=== PATIENT | male | born 1970 | race African-American/Black ===

== ENCOUNTER 2017-10-27 20:27 | Emergency (ER) | payer SELFPAY ==
[~2017-10-27] VITALS: Ht 177.8 cm; Wt 117.9 kg
[2017-10-27 20:35] VITALS: BP 178/107
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
--- NOTE | 2017-10-27 22:21 | RAD ---
CT Head W/O Contrast: History: head injury, neck pain, no priors Comparison: none Axial images were obtained without contrast. The yip and white matter appears normal and symmetrical for the patients age. There is no mass effect, extraaxial fluid collections or hydrocephalus. There is no gross bleed. There is no focal loss of yip-white matter distinction to suggest acute ischemia, i.e. stroke. Impression: No acute findings. End impression CT C-Spine without contrast: Clinical History: head injury, neck pain, no priors Technique: Axial helical images of the cervical spine were obtained without contrast, axial coronal and sagittal reconstruction was performed. Findings: There is no loss of vertebral body stature. There is no prevertebral soft tissue swelling. The vertebral bodies are well aligned. There is straightening of the normal cervical lordosis which can be positional or could be chronic. The C1-C2 relationship is normal. The visualized osseous structures appear normal. Evaluation of the central canal is limited without contrast. There is multiple posterior disc bulges resulting in flattening of the thecal sac. There does not appear to be gross flattening of the cervical cord. There is moderate narrowing of multiple neuroforamen. Impression: No acute findings. Clinical correlation suggested. PQRS Compliance Statement: One or more of the following individualized dose reduction techniques were utilized for this examination: 1. Automated exposure control 2. Adjustment of the mA and/or kV according to patient size 3. Use of iterative reconstruction technique Electronically signed by: Hipolito Rodriguez III, MD (10/27/2017 10:18 PM) [facility]
[2017-10-27] MEDS ORDERED: CYCL10TA2 PO (22:30)
== END 2017-10-27 22:35 | disposition home or self-care (01) ==
LOC: ER 20:27
DX: S16.1XXA Strain of muscle, fascia and tendon at neck level, initial encounter (principal); H53.8 Other visual disturbances; V49.9XXA Car occupant (driver) (passenger) injured in unspecified traffic accident, initial encounter; Y93.89 Activity, other specified; Y92.410 Unspecified street and highway as the place of occurrence of the external cause; Y99.8 Other external cause status
CPT/HCPCS: 70450; 72125; 99284

== ENCOUNTER 2017-12-09 05:28 | Emergency (ER) | payer SELFPAY ==
[~2017-12-09] VITALS: Ht 177.8 cm; Wt 117.9 kg
[~2017-12-09 05:28] MED LIST: CYCL10TA2 PO
--- NOTE | 2017-12-09 06:07 | PHYS DOC ---
Past Medical History Past Medical History: No Pertinent History Past Surgical History: Other Additional Past Surgical Histo: PENIAL-REMOVED SKIN 27YRS AGO Alcohol Use: None Drug Use: None Adult General Chief Complaint Chief Complaint: BACK PAIN OR INJURY HPI HPI Patient is a 47 her old male who presents with complaint of continued neck pain after an injury on the first october. Patient states that he had injured himself at work and had come to the emergency room at that time during which they had done a CT imaging. Patient states that he continues to have neck pain and this morning he states his legs gave out and he fell. He states that his pain is now worse. He rates pain at an 8 out of 10. He states that he has been taking [id number] ibuprofen without any relief. He denies any loss of bowel or bladder control. Patient states that pain is worsened with movement of his neck. He does describe the pain in his neck is cramps. He denies any muscle cramps in any other areas of his body. Review of Systems Review of Systems Constitutional: Denies fever or chills [] Respiratory: Denies cough or shortness of breath [] Cardiovascular: Denies chest pain[] GI: Denies abdominal pain, nausea, vomiting or diarrhea [] Musculoskeletal: Complains of neck pain[] Integument: Denies rash or skin lesions [] Neurologic: Denies headache, focal weakness or sensory changes [] All other systems were reviewed and found to be within normal limits, except as documented in this note. Current Medications Current Medications Current Medications Medications (Trade) Dose Ordered Sig/Zonia Start Time Stop Time Status Last Admin Dose Admin Dexamethasone Sodium Phosphate (Decadron) 10 mg 1X ONCE 12/09/17 07:00 12/09/17 07:01 DC 12/09/17 06:54 10 MG Orphenadrine Citrate (Norflex) 60 mg 1X ONCE 12/09/17 07:00 12/09/17 07:01 DC 12/09/17 06:55 60 MG Allergies Allergies Allergies Coded Allergies Type Severity Reaction Last Updated Verified No Known Drug Allergies 10/27/17 No Physical Exam Physical Exam Constitutional: Well developed, well nourished, no acute distress, non-toxic appearance. [] HENT: Normocephalic, atraumatic. [] Eyes: PERRLA, EOMI, conjunctiva normal, no discharge. [] Neck: Normal range of motion, supple, no stridor. Patient does report tenderness to palpation in the bilateral suboccipital musculature. [] Cardiovascular:Heart rate regular rhythm [] Lungs & Thorax: Bilateral breath sounds clear to auscultation [] Skin: Warm, dry, no erythema, no rash. [] Extremities: No tenderness, no cyanosis, no clubbing, ROM intact, no edema. [] Neurologic: Alert and oriented X 3, normal motor function, normal sensory function, no focal deficits noted. [] Current Patient Data Vital Signs Vital Signs Date Time Temp Pulse Resp B/P (MAP) Pulse Ox O2 Delivery O2 Flow Rate FiO2 12/09/17 07:00 82 18 192/104 (133) 99 12/09/17 05:52 98.6 Room Air 98.6 Lab Values Laboratory Tests Test 12/09/17 06:07 White Blood Count 7.5 x10^3/uL (4.0-11.0) Red Blood Count 5.05 x10^6/uL (4.30-5.70) Hemoglobin 13.6 g/dL (13.0-17.5) Hematocrit 41.0 % (39.0-53.0) Mean Corpuscular Volume 81 fL (79-100) Mean Corpuscular Hemoglobin 27 pg (25-35) Mean Corpuscular Hemoglobin Concent 33 g/dL (31-37) Red Cell Distribution Width 15.0 % (11.5-14.5) H Platelet Count 301 x10^3/uL (140-400) Neutrophils (%) (Auto) 66 % (31-73) Lymphocytes (%) (Auto) 23 % (24-48) L Monocytes (%) (Auto) 8 % (0-9) Eosinophils (%) (Auto) 2 % (0-3) Basophils (%) (Auto) 1 % (0-3) Neutrophils # (Auto) 4.9 x10^3uL (1.8-7.7) Lymphocytes # (Auto) 1.8 x10^3/uL (1.0-4.8) Monocytes # (Auto) 0.6 x10^3/uL (0.0-1.1) Eosinophils # (Auto) 0.1 x10^3/uL (0.0-0.7) Basophils # (Auto) 0.1 x10^3/uL (0.0-0.2) Sodium Level 139 mmol/L (136-145) Potassium Level 3.5 mmol/L (3.5-5.1) Chloride Level 101 mmol/L (98-107) Carbon Dioxide Level 31 mmol/L (21-32) Anion Gap 7 (6-14) Blood Urea Nitrogen 9 mg/dL (8-26) Creatinine 1.0 mg/dL (0.7-1.3) Estimated GFR (Cockcroft-Gault) 97.3 Glucose Level 121 mg/dL (70-99) H Calcium Level 9.6 mg/dL (8.5-10.1) Magnesium Level 1.9 mg/dL (1.8-2.4) Laboratory Tests 12/09/17 06:07 Laboratory Tests 12/09/17 06:07 EKG EKG [] Radiology/Procedures Radiology/Procedures [] Impressions: CT head and cervical spine are unremarkable. Course & Med Decision Making Course & Med Decision Making Pertinent Labs and Imaging studies reviewed. (See chart for details) [] Dragon Disclaimer Dragon Disclaimer This electronic medical record was generated, in whole or in part, using a voice recognition dictation system. Departure Departure Impression: Primary Impression: Neck pain, musculoskeletal Additional Impression: Headache Disposition: 01 HOME, SELF-CARE Condition: STABLE Referrals: NO PCP (PCP) Patient Instructions: Cervical Sprain, Headache, FAQs Scripts Tramadol Hcl (TRAMADOL HCL) 50 Mg Tablet 50 MG PO DAILY PRN for PAIN, #12 TAB 0 Refills Prov: GUSTABO STANFORD Jr. DO 12/09/17 Diclofenac Sodium (DICLOFENAC SODIUM) 50 Mg Tablet.dr 1 TAB PO BID PRN for PAIN, #20 TAB Prov: GUSTABO STANFORD Jr. DO 12/09/17 Orphenadrine Citrate (ORPHENADRINE CITRATE) 100 Mg Tablet.er 1 TAB PO BID PRN for MUSCLE SPASMS, #14 TAB Prov: GUSTABO STANFORD Jr. DO 12/09/17 Problem Qualifiers Additional Impression: Headache Headache type: unspecified Headache chronicity pattern: unspecified pattern Intractability: not intractable Qualified Codes: R51 - Headache GUSTABO STANFORD Jr. DO Dec 09, 2017 06:07
[2017-12-09 06:20] LABS: BASO # 0.1 x10^3/uL (0.0-0.2); BASO % 1 % (0-3); EOS # 0.1 x10^3/uL (0.0-0.7); EOS % 2 % (0-3); HEMOGLOBIN 13.6 g/dL (13.0-17.5); LYMPH # 1.8 x10^3/uL (1.0-4.8); LYMPH % 23 % (24-48); MEAN CORPUSCULAR HEMOGLOBIN 27 pg (25-35); MEAN CORPUSCULAR HGB CONC 33 g/dL (31-37); MEAN CORPUSCULAR VOLUME 81 fL (79-100); MONO # 0.6 x10^3/uL (0.0-1.1); MONO % 8 % (0-9); NEUT # 4.9 x10^3uL (1.8-7.7); NEUT % 66 % (31-73); PLATELET COUNT 301 x10^3/uL (140-400); RED BLOOD COUNT 5.05 x10^6/uL (4.30-5.70); WHITE BLOOD COUNT 7.5 x10^3/uL (4.0-11.0)
[2017-12-09 06:28] LABS: CALCIUM 9.6 mg/dL (8.5-10.1); GFR 97.3; MAGNESIUM 1.9 mg/dL (1.8-2.4); POTASSIUM 3.5 mmol/L (3.5-5.1)
[2017-12-09] MEDS: DEXAMETHASONE SOD PHOS 20 MG/5 ML VIAL. IV ONE (06:54)
[2017-12-09] MEDS: ORPHENADRINE CITRATE 60 MG/2 ML VIAL. IM ONE (06:55)
[2017-12-09 07:00] VITALS: BP 192/104
--- NOTE | 2017-12-09 07:10 | RAD ---
RS Compliance Statement: One or more of the following individualized dose reduction techniques were utilized for this examination: 1. Automated exposure control 2. Adjustment of the mA and/or kV according to patient size 3. Use of iterative reconstruction technique CT HEAD AND CERVICAL SPINE WITHOUT CONTRAST History: Head and neck pain after recent injury; fall this morning Comparison: CT head and cervical spine without contrast, October 27, 2017. Procedure: Axial images are obtained of the head from the skull base through the vertex without IV contrast. Noncontrast helical CT of the cervical spine was performed. Axial, sagittal, and coronal reconstructions were obtained. Findings: The ventricles and sulci are normal for the patient's age. No mass-effect, midline shift, hemorrhage or obvious acute infarction is identified. Basilar cisterns are patent. Bone windows demonstrate no significant calvarial abnormality. Tiny mucous retention cyst or polyp left sphenoid sinus. The other visualized paranasal sinuses are clear. Mastoid air cells are well aerated. Bilateral proptosis is similar to prior study. Increased noise to signal ratio in the cervical spine likely due to patient body habitus. There is no evidence of acute fracture or acute malalignment of the cervical spine. The vertebral body height and alignment are maintained. There is degenerative endplate spurring. The facet joints are intact. The central canal is diffusely narrow, perhaps due to congenitally short pedicles. The craniovertebral junction is normal. Visualized soft tissues of the neck demonstrate no significant abnormalities. The visualized lung apices are clear. IMPRESSION: 1. No acute intracranial abnormality. 2. No acute fracture of the cervical spine. Electronically signed by: Damir Souza MD (12/09/2017 7:07 AM) [facility]
[2017-12-09] MEDS ORDERED: TRAM50TA PO (07:31)
[2017-12-09] MEDS ORDERED: ORPH100T PO (07:31)
[2017-12-09] MEDS ORDERED: DICL50TA4 PO (07:31)
== END 2017-12-09 07:35 | disposition home or self-care (01) ==
LOC: ER 05:28
DX: M54.2 Cervicalgia (principal); R51 Headache
CPT/HCPCS: 36415; 70450; 72125; 80048; 83735; 85025; 96372; 96374; 99285; J1100; J2360